=== PATIENT | male | born 1965 | race Caucasian/White ===

== ENCOUNTER 2017-03-31 10:33 | Emergency (ER) | payer MEDICAID ==
[2017-03-31 10:40] VITALS: BP 128/98
[2017-03-31 12:04] LABS: CHLORIDE,CL 109 mmol/L (98-107); SODIUM,NA 142 mmol/L (136-145)
[2017-03-31] MEDS ORDERED: LORazepam 1 MG Tab PO ONE (12:30)
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
--- NOTE | 2017-04-07 15:39 | PN ---
Date of Service: 03/31/2017 IDENTIFICATION: The patient is a 51-year-old male presents to the emergency room at the [facility] for evaluation and as needed seen for psychiatric consult per staff ER request. CHIEF COMPLAINT: "I was out of [facility] and they found the combination of meds that works for me." HISTORY OF PRESENT ILLNESS: The patient is a 51-year-old male reports he has been struggling with anxiety and mood swings. He states "my ADHD" often gets the better of him and he's been struggling with racing thoughts, ruminations lately and struggling also with poor sleep. Evidently, the patient was given Adderall XR and possibly Abilify while he was recently hospitalized and he felt that this combination of medications worked very well for him. At the moment, he his only taking the Abilify. He states that he is not able to get the Adderall XR because of concerns that this might not be a good fit for him and also for insurance issues, but he is stating that Adderall XR worked very well for him. He is wondering if he can get back on his medication to help him function better. He states he is also having mood swings and if he could get back on Abilify still hoping with that and to slow the racing thoughts and ruminations down, that would be good. The patient states he has been drinking alcohol lately "help me deal" with his psychiatric symptoms. He is not able to take his prescribed medications. He does state he will cease drinking if he is able to get his medications because his meds help him, so he does not need to drink. BAL on admission is 0.016. Utox is negative. The patient denies any suicidal or homicidal, denies any psychiatric, delusional, or paranoid symptoms. MEDICATIONS: At the time of presentation, the patient denies. ALLERGIES: No known drug allergies. PAST MEDICAL HISTORY: The patient has a history of emphysema. REVIEW OF SYSTEMS: Aside from pulmonary all other major organ systems are negative at this point in time, no complications. FAMILY PSYCHIATRIC AND CD HISTORY: The patient reports he has a sister with mild mental retardation. PAST PSYCHIATRIC AND CD HISTORY: The patient does report a previous psychiatric hospitalization at [facility], not reporting any chemical dependency treatment stating he is drinking about 12 pack per week of beer. PAST PSYCHIATRIC MEDICATION HISTORY: Includes Sinequan. He also reports he has been on: 1. Xanax. 2. Vyvanse. 3. Naltrexone. 4. Clonidine in the past. 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 Primary psychiatrist is out of [facility]. Primary MD is Dr. Espinoza. SOCIAL HISTORY: The patient was born and raised in [place], [place] and is currently on disability for his bipolar affect disease. He has been living in [place] for the past year. He is single. Not involved in any current relationship. He has no children. MENTAL STATUS EXAMINATION: The patient is a 51-year-old male in no apparent distress. Speech is rapid rate and rhythm. The patient is cognitively oriented. Psychomotor activity appears to be within normal limits. Mood is anxious. Affect is cooperative overall for purposes of the intake interview. There is no behavioral or stated evidence of acute suicidal or homicidal ideation or acute psychiatric, delusional, or paranoid symptoms. Thought processes are significant for racing thoughts and ruminations. There are no acute loose associations evident. The patient does come across as somewhat hypomanic. There are no acute manic symptoms either. Judgment and insight appear unimpaired at this point in time. Motivation for help appears fair to good. VITAL SIGNS: On admission 128/98, 98, 20, and 98.6 degrees. IMPRESSION: [place] I: 1. Bipolar affect disease mixed type F31.60. 2. Attention deficit hyperactivity disorder, combined type F90.2. 3. Rule out alcohol dependence, F10.20. [place] II: None. [place] III: History of emphysema. [place] IV: Moderate to severe. [place] V: Global assessment of functioning 60. PLAN: 1. Sobriety. 2. AA. 3. Begin Abilify 5 mg q.a.m. for clarity of thought and mood stability. 4. Begin Adderall XR 30 mg q.a.m. to help with focus concentration and reduction of hyperactivity. 5. Begin Topamax 25 mg b.i.d. x7 days, increase to 50 mg b.i.d _ to help with mood stability. 6. It was explained to the patient that if he is unable to maintain sobriety on his own, especially while being prescribed these medications Adderall XR in particular, will not be able to be prescribed likely by his primary MD. The patient acknowledges understanding and expectations by the end of the interview session. 7. Recommend the patient to follow up with primary MD as scheduled. 8. Recommend the patient follow up with outpatient psychiatry as scheduled. 9. Continue follow up with the patient on as needed basis while remaining in the emergency room. 10.Corrective plan in place. AZEEM CARPIO MD /[id number]
== END 2017-03-31 12:45 | disposition home or self-care (01) ==
LOC: LL.ED 10:33
DX: F31.9 Bipolar disorder, unspecified (principal); H54.7 Unspecified visual loss; J44.9 Chronic obstructive pulmonary disease, unspecified; Z98.890 Other specified postprocedural states; Z79.899 Other long term (current) drug therapy; F17.210 Nicotine dependence, cigarettes, uncomplicated
CPT/HCPCS: 36415; 80053; 80305; 85025; 99284; A9270; G0480

== ENCOUNTER 2017-06-11 10:11 | Emergency (ER) | payer MEDICAID ==
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
[2017-06-11 15:23] VITALS: BP 178/97
== END 2017-06-11 11:36 | disposition home or self-care (01) ==
LOC: LL.ED 10:11
DX: F31.9 Bipolar disorder, unspecified (principal); F90.9 Attention-deficit hyperactivity disorder, unspecified type; J44.9 Chronic obstructive pulmonary disease, unspecified; F17.210 Nicotine dependence, cigarettes, uncomplicated; Z79.899 Other long term (current) drug therapy
CPT/HCPCS: 36415; 80305; 99283; G0480

== ENCOUNTER 2018-06-13 08:08 | Emergency (ER) | payer MEDICAID, OTHER ==
[2018-06-13 08:18] VITALS: BP 144/95
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
== END 2018-06-13 09:30 | disposition home or self-care (01) ==
LOC: LL.ED 08:08
DX: M25.511 Pain in right shoulder (principal); M25.512 Pain in left shoulder; F17.210 Nicotine dependence, cigarettes, uncomplicated; J44.9 Chronic obstructive pulmonary disease, unspecified; F41.9 Anxiety disorder, unspecified; F32.9 Major depressive disorder, single episode, unspecified
CPT/HCPCS: 73030-50; 99283

== ENCOUNTER 2018-06-17 11:54 | Emergency (ER) | payer OTHER ==
--- NOTE | 2018-06-17 12:08 | EDM.PDOC ---
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 COPD (chronic obstructive pulmonary disease) SNOMED Code(s): 03068429 Code(s): J44.9 - CHRONIC OBSTRUCTIVE PULMONARY DISEASE, UNSPECIFIED Status : Chronic Priority: Medium Annotation/Comment:: No recent bronchitic-type symptoms. No current medical therapy. Tobacco cessation once again strongly encouraged with information provided at discharge. Qualifiers: COPD type: emphysema (7) Drug abuse SNOMED Code(s): 68353401 Code(s): F19.10 - OTHER PSYCHOACTIVE SUBSTANCE ABUSE, UNCOMPLICATED Status : Chronic Priority: High Annotation/Comment:: Counseling for the drug abuse was once again strongly encouraged with close follow-up by regular provider. Note negative drug screen today despite recent methamphetamine abuse as above. (8) Mixed anxiety depressive disorder SNOMED Code(s): 403623756 Code(s): F41.8 - OTHER SPECIFIED ANXIETY DISORDERS Status: Chronic Priority: Medium Annotation/Comment:: As above with moderate control at this time. (9) Tobacco abuse counseling SNOMED Code(s): 426623488, 226204463, 749761515 Code(s): Z71.6 - TOBACCO ABUSE COUNSELING Status: Chronic Priority: Medium Annotation/Comment:: As above (10) Hypertension SNOMED Code(s): 83754809 Code(s): I10 - ESSENTIAL (PRIMARY) HYPERTENSION Status: Chronic Priority : Medium Annotation/Comment:: Somewhat high blood pressures in the emergency room secondary to patient's current abdominal complaints. Note history of medication noncompliance as above. Close follow-up by his regular provider. Qualifiers: Hypertension type: essential hypertension Qualified Code(s): I10 - Essential (primary) hypertension (11) Hyperlipidemia SNOMED Code(s): 71001528 Code(s): E78.5 - HYPERLIPIDEMIA, UNSPECIFIED Status: Chronic Priority: Medium Annotation/Comment:: Last lipid panel conducted in this facility on was reviewed. Note no current medical therapy and history of noncompliance. Continue to observe closely by his regular provider. Qualifiers: Hyperlipidemia type: mixed hyperlipidemia Qualified Code(s): E78.2 - Mixed hyperlipidemia - Problem List Review Problem List Initiated/Reviewed/Updated: Yes - My Orders Last 24 Hours: My Active Orders 06/17/18 12:09 Peripheral IV Care [RC] . DIRECTED Abdomen Series w Chest 1V [CR] Stat H PYLORI STOOL ANTIGEN [MREF] Urgent Obtain Past Medical Record [OM.PC] Urgent Peripheral IV Insertion Adult [OM.PC] Stat Resuscitation Status Stat 06/17/18 12:32 OCCULT BLOOD DIAGNOSTIC [OP] Stat 06/17/18 12:50 CULTURE URINE [RM] Stat DRUG SCREEN, URINE [URCHEM] Stat UA W/MICROSCOPIC [URIN] Stat - Assessment/Plan Last 24 Hours: My Active Orders 06/17/18 12:09 Peripheral IV Care [RC] . DIRECTED Abdomen Series w Chest 1V [CR] Stat H PYLORI STOOL ANTIGEN [MREF] Urgent Obtain Past Medical Record [OM.PC] Urgent Peripheral IV Insertion Adult [OM.PC] Stat Resuscitation Status Stat 06/17/18 12:32 OCCULT BLOOD DIAGNOSTIC [OP] Stat 06/17/18 12:50 CULTURE URINE [RM] Stat DRUG SCREEN, URINE [URCHEM] Stat UA W/MICROSCOPIC [URIN] Stat Assessment:: As above Plan: As above. Extensive precautions were given to the patient, who is in agreement with the treatment plan. See Patient Instructions for further treatment and plan.
[2018-06-17] MEDS ORDERED: Lactated Ringers 1,000 ML IV ONE (12:09)
[2018-06-17] MEDS ORDERED: Sodium Chloride 0.9% 10 ML Syringe FLUSH PRN (12:09)
[2018-06-17] MEDS ORDERED: Pantoprazole 40 MG Vial IVPUSH ONE (12:09)
[2018-06-17] MEDS ORDERED: Ondansetron 4 MG/2 ML SDV IVPUSH ONE (12:09)
[2018-06-17] MEDS ORDERED: Famotidine 20 MG/2 ML SDV IVPUSH ONE (12:09)
[2018-06-17 12:40] LABS: CHLORIDE,CL 102 mmol/L (98-107); SODIUM,NA 138 mmol/L (136-145)
[2018-06-17 14:08] VITALS: BP 171/86
== END 2018-06-17 13:42 | disposition home or self-care (01) ==
LOC: LL.ED 11:54
DX: R10.84 Generalized abdominal pain (principal); F41.8 Other specified anxiety disorders; K21.9 Gastro-esophageal reflux disease without esophagitis; J43.1 Panlobular emphysema; E86.0 Dehydration; M15.0 Primary generalized (osteo)arthritis; E78.2 Mixed hyperlipidemia; Z77.22 Contact with and (suspected) exposure to environmental tobacco smoke (acute) (chronic)
CPT/HCPCS: 36415; 74022; 80053; 80305-QW; 81001; 82150; 82272; 83605; 83690; 83735; 84550; 85025; 85610; 85730; 87086; 96361; 96374; 96375; 99284; C9113; G0480; J2405; J3490; J7120